=== PATIENT | female | born 2000 ===

== ENCOUNTER 2024-12-08 14:33 | Outpatient (CLI) | payer MEDICAID | END 2024-12-08 17:00 | disposition home or self-care (01) | LOC: LAB 14:33 | DX: N92.0 Excessive and frequent menstruation with regular cycle (principal) | CPT/HCPCS: 36415; 84144; 84702 ==

== ENCOUNTER 2024-12-11 10:10 | Outpatient (CLI) | payer MEDICAID ==
[2024-12-11 11:40] LABS: Hematocrit 35.5 % (36.0-46.0); Hemoglobin 11.5 g/dL (12.2-16.2); Mean Corpuscular Hemoglobin 22.7 pg (28.0-32.0); Mean Corpuscular Volume 70.2 fL (80.0-100.0); Nucleated Red Blood Cells % 0.1 %
[2024-12-11 11:50] LABS: Iron 49.0 ug/dL (50-170)
[2024-12-11 11:53] LABS: Alanine Aminotransferase 15 U/L (7-40); Albumin 5.0 g/dL (3.2-4.8); Alkaline Phosphatase 36 U/L (46-116); Anion Gap 9 (5-15); BUN/Creatinine Ratio 16.9 (10.0-20.0); Blood Urea Nitrogen 15 mg/dL (9-23); Calcium 9.9 mg/dL (8.7-10.4); Carbon Dioxide 26 mmol/L (20-31); Chloride 106 mmol/L (98-107); Glucose 89 mg/dL (74-106); Potassium 4.4 mmol/L (3.5-5.1); Sodium 141 mmol/L (136-145); Total Protein 7.2 g/dL (5.7-8.2)
[2024-12-11 11:54] LABS: Bilirubin, Total 0.5 mg/dL (0.2-1.0)
[2024-12-11 11:58] LABS: Ferritin 3.0 ng/mL (10-291)
[2024-12-11 11:59] LABS: Free T4 (Free Thyroxine) 1.16 ng/dL (0.89-1.76)
[2024-12-11 14:31] LABS: Total Iron Binding Capacity 430.0 ug/dL (250-425)
== END 2024-12-11 17:00 | disposition home or self-care (01) ==
LOC: LAB 10:10
PROVIDERS: ATTEND Nurse Practitioner Women's Health
DX: Z31.69 Encounter for other general counseling and advice on procreation (principal); Z31.49 Encounter for other procreative investigation and testing
CPT/HCPCS: 36415; 80053; 82306; 82607; 82728; 82746; 83036; 83540; 83550; 84436; 84439; 84443; 84479; 84480; 85025; 86376; 86800

== ENCOUNTER 2025-05-06 09:34 | Outpatient (CLI) | payer MEDICAID ==
[2025-05-06 10:15] LABS: Hemoglobin 12.0 g/dL (12.2-16.2)
[2025-05-06 10:17] LABS: Hematocrit 35.7 % (36.0-46.0); Mean Corpuscular Hemoglobin 26.3 pg (28.0-32.0); Mean Corpuscular Volume 78.4 fL (80.0-100.0); Nucleated Red Blood Cells % 0.0 %
[2025-05-06 10:57] LABS: Alanine Aminotransferase 16 U/L (7-40); Albumin 4.1 g/dL (3.2-4.8); Anion Gap 12 (5-15); BUN/Creatinine Ratio 18.9 (10.0-20.0); Blood Urea Nitrogen 10 mg/dL (9-23); Calcium 9.4 mg/dL (8.7-10.4); Carbon Dioxide 21 mmol/L (20-31); Glucose 82 mg/dL (74-106); Sodium 141 mmol/L (136-145); Total Protein 6.6 g/dL (5.7-8.2)
[2025-05-06 10:58] LABS: Bilirubin, Total 0.3 mg/dL (0.2-1.0)
[2025-05-06 11:01] LABS: Alkaline Phosphatase 39 U/L (46-116); Chloride 108 mmol/L (98-107); Potassium 3.4 mmol/L (3.5-5.1)
[2025-05-06 16:03] LABS: Amphetamine Screen, Urine Neg (NEGATIVE); Barbiturate Scree,Urine Neg (NEGATIVE); Benzodiazephine Screen, Urine Neg (NEGATIVE); Cannabinoid Screen, Urine Neg (NEGATIVE); Cocaine Screen, Urine Neg (NEGATIVE); Opiate Scree,Urine Neg (NEGATIVE); Phencyclidine Screen, Urine Neg (NEGATIVE)
[2025-05-07 15:07] LABS: Chlamydia Trachomatis, NAA Negative (Negative); Neisseria gonorrhoeae, NAA Negative (Negative)
== END 2025-05-06 17:00 | disposition home or self-care (01) ==
LOC: LAB 09:34
DX: O23.40 Unspecified infection of urinary tract in pregnancy, unspecified trimester (principal); N39.0 Urinary tract infection, site not specified; Z11.3 Encounter for screening for infections with a predominantly sexual mode of transmission; Z31.430 Encounter of female for testing for genetic disease carrier status for procreative management; Z36.0 Encounter for antenatal screening for chromosomal anomalies; Z3A.00 Weeks of gestation of pregnancy not specified
CPT/HCPCS: 36415; 80053; 80307; 83036; 84702; 85025; 86480; 86703; 86762; 86780; 86850; 86900; 86901; 87086; 87340; 87902